=== PATIENT | female | born 1960 | race Two or more races ===

== ENCOUNTER 2025-04-30 22:40 | Emergency (ER) | payer MEDICARE, MEDICAID ==
[~2025-04-30] VITALS: Ht 167.6 cm; Wt 118.0 kg
[2025-04-30 22:50] VITALS: TEMP 98.1
[2025-04-30] MEDS: PROPARACAINE HCL 0.5% OPTH(EYE) SOL 15ML OP ONE (23:00)
[2025-04-30] MEDS: FLUORESCEIN SOD OPTH TEST STRIP EACHEYE ONE (23:00)
--- NOTE | 2025-04-30 23:13 | ED.PDOC ---
Eye-HPI HPI Comments 64 y/o morbidly obese F presents with c/c right eye complication with associated pain. Patient endorses on mistaking superglue she had in her bag for her prescription eyedrops she had following cataract surgery on 04/05/25, this evening. Denial of any further acute symptoms. Chief Complaint: Eye Problem Time Seen by MD: 23:00 Reviewed Notes: Nurses Notes, Allergies Allergies: Coded Allergies: Erythromycin (Verified Allergy, Unknown, 04/30/25) Guaifenesin (Verified Allergy, Unknown, 04/30/25) Home Meds Active Scripts Gentamicin Sulfate (Gentamicin Sulfate) 0.3 % Aurora, 1 DROP RIGHTEYE QID for 7 Days, #5 ML Prov:ESTEBAN MOHAN MD 04/30/25 Information Source: Patient Mode of Arrival: Ambulatory Past Medical History Surgical History (Other): cataracts All Other Systems: Reviewed and Negative (Comprehensive review of systems are negative unless stated in HPI) Physical Exam General Appearance: No Apparent Distress, Obese HEENT: Pharynx Normal, TMs Normal, Other (dry glue residue on the upper and lower right eyelashes, cornea clear, no fluorescein uptake) Neck: Full Range of Motion, Non-Tender, Normal, Normal Inspection Respiratory: Chest Non-Tender, Lungs Clear, No Accessory Muscle Use, No Respiratory Distress, Normal Breath Sounds Cardiovascular: No Edema, No JVD, No Murmur, No Gallop, Normal Peripheral Pulses, Regular Rate/Rhythm Breast Exam: Deferred Gastrointestinal: No Organomegaly, Non Tender, No Pulsatile Mass, Normal Bowel Sounds, Soft Genitalia: Deferred Pelvic: Deferred Rectal: Deferred Extremities: No calf tenderness, Normal capillary refill, Normal inspection, Normal range of motion, Non-tender, No pedal edema Musculoskeletal : Apperance: Normal Neurologic: Alert, medical research scientist II-XII nml as Tested, No Motor Deficits, Normal Affect, Normal Mood, No Sensory Deficits Cerebellar Function: Normal Reflexes: Normal Skin: Dry, Normal Color, Warm Lymphatic: No Adenopathy Was a procedure done? Was a procedure done?: No EENT DIFF Eye: Corneal Abrasion, Corneal Ulceration, Foreign Body-Conjunctiva, Foreign Body-Corneal, Foreign Body-Intraocular, Foreign Body-Lid, Other (foreign body retention) Ear: N/A Nose: N/A Mouth: N/A Sore Throat: N/A X-Ray, Labs, Meds, VS Vital Signs Date Time Temp Pulse Resp B/P (MAP) Pulse Ox O2 Delivery O2 Flow Rate FiO2 05/01/25 00:19 95 14 133/65 (87) 98 04/30/25 23:46 17 68 Room Air* 0 21 04/30/25 22:50 98.1 105 19 173/99 (123) 98 98.1 04/30/25 22:43 98.9 117 20 180/85 96 98.9 Current Medications Medications (Trade) Dose Ordered Sig/Dahlia Route Start Time Stop Time Status Last Admin Fluorescein Sodium (Ful-Jennifer) 1 mg ONCE ONCE EACHEYE 04/30/25 23:00 04/30/25 23:01 DC 04/30/25 23:00 Gentamicin Sulfate (Garamycin 0.3% Opthalmic Soln) 1 drop ONCE ONCE RIGHTEYE 04/30/25 23:15 04/30/25 23:16 DC 04/30/25 23:15 Tetracaine HCl (Tetracaine 0.5% Opth Soln) 1 drop ONCE ONCE RIGHTEYE 04/30/25 23:45 04/30/25 23:46 DC 04/30/25 23:45 Time of 1ST Reevaluation: 23:30 Reevaluation 1ST: Unchanged Patient Education/Counseling: Treatment Family Education/Counseling: No Family Present SEPSIS Sepsis Screen Date sepsis recognized/suspect: Apr 30, 2025 Time Sepsis recognized/suspect: 2247 Recent Procedure: No On Antibiotic Therapy: No Respiratory Rate >20: No Heart Rate >90: Yes Temp<36 C (96.8 F) or >38.3 C: No SBP <90 or MAP <65 mmHG: No New Acute Mental Status Change: No Is the patient on CPAP, BIPAP,: No Physician Orders Mar[place]ro Lamp (04/30/25 ) Eye Exam Setup (04/30/25 ) Vital Signs Date Time Temp Pulse Resp B/P (MAP) Pulse Ox O2 Delivery O2 Flow Rate FiO2 05/01/25 00:19 95 14 133/65 (87) 98 04/30/25 23:46 17 68 Room Air* 0 21 04/30/25 22:50 98.1 105 19 173/99 (123) 98 98.1 04/30/25 22:43 98.9 117 20 180/85 96 98.9 Medications Medications Dose Ordered Sig/Dahlia Route Start Time Stop Time Status Last Admin Dose Admin Fluorescein Sodium 1 mg ONCE ONCE EACHEYE 04/30/25 23:00 04/30/25 23:01 DC 04/30/25 23:00 Gentamicin Sulfate 1 drop ONCE ONCE RIGHTEYE 04/30/25 23:15 04/30/25 23:16 DC 04/30/25 23:15 Tetracaine HCl 1 drop ONCE ONCE RIGHTEYE 04/30/25 23:45 04/30/25 23:46 DC 04/30/25 23:45 Departure 1 Departure Time of Disposition: 01:00 Impression: Primary Impression: Chemical conjunctivitis of right eye Additional Impression: Toxic effect of cyanoacrylate Disposition: 01 HOME / SELF CARE / HOMELESS Condition: Stable e-Prescriptions Gentamicin Sulfate (Gentamicin Sulfate) 0.3 % [place] 1 DROP RIGHTEYE QID for 7 Days, #5 ML Prov: ESTEBAN MOHAN MD 04/30/25 Discharged With: Self Critical Care Note Critical Care Time?: No Stability Stability form required: No Heart Score Heart Score: Heart Score Response (Comments) Value History N/A 0 EKG N/A 0 Age N/A 0 Risk Factors N/A 0 Troponin N/A 0 Total 0 I personally scribed for ESTEBAN MOHAN MD ([email or web address]) on 04/30/25 at 23:13. Electronically submitted by Moses Camacho ([email or web address]). ESTEBAN MOHAN MD Apr 30, 2025 23:13
[2025-04-30] MEDS: GENTAMICIN OPTH sol 0.3% 5ml RIGHTEYE ONE (23:15)
[2025-04-30] MEDS: TETRACAINE HCL 0.5% OPTH(EYE) SOLN 4ML RIGHTEYE ONE (23:45)
[2025-04-30 23:46] VITALS: RESP 17; O2SAT 68
[2025-04-30] MEDS ORDERED: GENT0.3S10 RIGHTEYE (23:54)
[2025-05-01 00:19] VITALS: BP 133/65; PULSE 95; RESP 14; O2SAT 98
== END 2025-05-01 00:14 | disposition home or self-care (01) ==
LOC: ER 22:40
DX: T49.3X1A Poisoning by emollients, demulcents and protectants, accidental (unintentional), initial encounter (principal); H10.211 Acute toxic conjunctivitis, right eye; Z88.1 Allergy status to other antibiotic agents; Z79.899 Other long term (current) drug therapy; Y92.89 Other specified places as the place of occurrence of the external cause